=== PATIENT | male | born 1965 | race Caucasian/White ===

== ENCOUNTER 2024-04-17 12:53 | Day surgery (SDC) | payer OTHER ==
[~2024-04-17] VITALS: Ht 167.6 cm; Wt 79.4 kg
[~2024-04-17 12:53] MED LIST: COZAAR25 MG PO; GLIPIZIDE ER10 MG PO; IBLOOD GLUCOSE TEST STRIP 1 EA TEST VI PRN; LACTATED RINGER'S 1,000 ML IV SCH; LIDOCAINE HCL 1% 5 ML SDV INJ ONE; MIDAZOLAM HCL 5 MG/5 ML VIAL IV PRN; SEMGLEE (Y100 UNIT/2 SUB-Q; ZETIA10 MG PO; fentaNYL citrate 100 MCG/2 ML VIAL IV PRN
[2024-04-17 13:09] VITALS: BP 140/85
[2024-04-17] MEDS ORDERED: MIDAZOLAM HCL 5 MG/5 ML VIAL ONE (13:10)
[2024-04-17] MEDS ORDERED: fentaNYL citrate 100 MCG/2 ML VIAL ONE (13:10)
[2024-04-17] MEDS ORDERED: ASPIRIN81 MG PO (13:32)
--- NOTE | 2024-04-17 14:25 | NUR ---
04/17/24 1425 Ghazal Kirby 1420 PATIENT INTO PACU BAY 6. VITAL SIGNS COMPLETED. PATIENT ALERT AND ORIENTED. PATIENT BREATHING EQUAL AND UNLABORED. OXYGEN SATURATIONS ABOVE 90% ON 3 LITERS. PATIENT TITRATED DOWN TO ROOM AIR. PATIENT DENIES PAIN OR BEING NASUEATED AT THIS TIME. ABD SOFT. IVF INFUSING. 1425 PATIENT HEAD OF BED ELEVATED. DR. TREVINO AT BEDSIDE.
[2024-04-17 14:41] VITALS: BP 109/76
--- NOTE | 2024-04-18 10:29 | OR ---
[facility] [place] [facility] [address], [place] [address] Signed DATE OF OPERATION: 04/17/2024 SURGEON: Jovani Trevino MD PREOPERATIVE DIAGNOSIS: Positive Cologuard test. POSTOPERATIVE DIAGNOSIS: 2 cm pedunculated polyp at 20 cm (excised). PROCEDURE: Total colonoscopy to cecum with hot snare polypectomy x1. ANESTHESIA: Intravenous sedation; fentanyl 150 mcg and Versed 7 mg. INDICATION: This 58-year-old white man is a patient of Dr. Brian Addison. He underwent colon screening by Cologuard test, which was found to be positive. This test was noted to be abnormal a number of months ago. The patient is in an ongoing workup for possible chest pain issues, which seems to have resolved since starting aspirin on a daily basis. He is admitted at this time to undergo colonoscopy on the basis of his positive Cologuard test. He understands the risk of bleeding, infection, perforation, and of course failure to identify adenomatous polyp. Understanding this, he wished to proceed. FINDINGS: The prep was quite excellent. Complete and full intubation to the cecum was accomplished. The colon was normal except for a pedunculated polyp noted at 20 cm which was excised completely with hot snare technique. DESCRIPTION OF PROCEDURE: The patient was brought to the endoscopy suite and placed in the lateral decubitus position, given intravenous sedation to the point of slurred speech and nystagmus. Digital rectal examination was normal. An Olympus video colonoscope was passed in the rectum and manipulated throughout the colon ultimately intubating the cecum itself and notably good prep was noted. The cecum was well evaluated showing no sign of abnormality. The scope was then withdrawn and examination throughout showed no sign of abnormality until 20 cm from the anal verge where an obvious pedunculated polyp was noted. This was excised with hot snare Electronically Signed By: JOVANI TREVINO MD 04/18/24 1029 PATIENT NAME: CARLOS THOMAS OPERATIVE REPORT DATE OF : 61 REPORT #: [id number] PHYSICIAN: JOVANI TREVINO MD PCP: BRIAN ADDISON MD REPORT IS CONFIDENTIAL AND NOT TO BE RELEASED WITHOUT AUTHORIZATION [facility] [address], [place] [address] Signed polypectomy technique without problem. The specimen was passed for pathology. The scope was further withdrawn and there were no other findings of concern and was reintroduced affirming the biopsy site to be hemostatic with no other sign of polyp or problem. The scope was removed ultimately and the patient was taken to the recovery room in good condition. CONCLUDING DIAGNOSIS: Positive Cologuard test identifying a sigmoid polyp at 20 cm (now excised). PLAN: Would recommend repeat colonoscopy in 5 years, sooner if symptoms should develop. The patient would not be a candidate for Cologuard screening in the future based on current recommendations. MD HILDA Fatima/FATOUMATA /[id number] Copies: ~ Electronically Signed By: JOVANI TREVINO MD 04/18/24 1029 PATIENT NAME: CARLOS THOMAS OPERATIVE REPORT DATE OF : 61 REPORT #: [id number] PHYSICIAN: JOVANI TREVINO MD PCP: BRIAN ADDISON MD REPORT IS CONFIDENTIAL AND NOT TO BE RELEASED WITHOUT AUTHORIZATION
--- NOTE | 2024-04-19 14:01 | PATH ---
[facility] [address] [place], [place] [address] Signed SPECIMEN(S): A SIGMOID POLYP, 20 CM SPECIMEN SOURCE: A. SIGMOID POLYP, 20 CM CLINICAL HISTORY: Pre: Positive Cologuard. Post: Polyp x1 at 20 cm. FINAL PATHOLOGIC DIAGNOSIS: Sigmoid polyp at 20 cm: - Tubular adenoma. JVR:bree MICROSCOPIC EXAMINATION: Histologic sections of all submitted blocks are examined by light microscopy. These findings, together with the gross examination, support the pathologic diagnosis. GROSS DESCRIPTION: The specimen, labeled and designated "Dalton Cain, sigmoid polyp at 20 cm," is received in formalin and consists of one nicole soft tissue fragment, 1.0 cm. Entirely submitted in (A1). HS (under the direct supervision of a pathologist) The Gross Description was prepared using a voice recognition system. The report was reviewed for accuracy; however, sound-alike word errors, addition and/or deletions may occur. If there is any question about this report, please contact Client Services. ADDITIONAL NOTES: Immunohistochemical and/or in situ hybridization studies if performed in this case included appropriate positive controls that reacted as expected. This test was developed and its performance characteristics determined by [facility]. It has not been cleared or approved by the U.S. Food and Drug Administration. The FDA has determined that such clearance or approval is not necessary. This test is used for clinical purposes. It should not be regarded as investigational or for research. [facility] is certified under the Clinical Laboratory Improvement Amendments of 1988 (CLIA) as qualified to perform high complexity clinical laboratory testing. PATIENT NAME: CARLOS CAIN PATHOLOGY DATE OF : 61 REPORT #: [id number] PHYSICIAN: DEREK ABRAMS PCP: BRIAN ADDISON MD REPORT IS CONFIDENTIAL AND NOT TO BE RELEASED WITHOUT AUTHORIZATION [address] [place], [place] [address] Signed PERFORMING LABORATORY: Technical component was performed by [facility], [address] [place] [address] (CLIA# [id number]). Professional interpretation was performed by [facility], [address] [place] [phone] (CLIA#: [id number]). Diagnostician: Chucky Pierre MD Pathologist Electronically Signed 04/19/2024 Copies: ~ PATIENT NAME: CARLOS CAIN PATHOLOGY DATE OF : 61 REPORT #: [id number] PHYSICIAN: DEREK ABRAMS PCP: BRIAN ADDISON MD REPORT IS CONFIDENTIAL AND NOT TO BE RELEASED WITHOUT AUTHORIZATION
== END 2024-04-17 14:55 | disposition home or self-care (01) ==
LOC: OPS 12:53
PROVIDERS: ATTEND Surgery
PROC: 0DBN8ZZ Excision of Sigmoid Colon, Via Natural or Artificial Opening Endoscopic (ICD-10-PCS; principal; 2024-04-17 14:00)
DX: Z12.11 Encounter for screening for malignant neoplasm of colon (principal); D12.5 Benign neoplasm of sigmoid colon; I10 Essential (primary) hypertension
CPT/HCPCS: 88305; 99153; G0500; J2250; J3010